=== PATIENT | male | born 1940 | race Caucasian/White ===

== ENCOUNTER 2018-09-15 03:44 | Emergency (ER) | payer MEDICARE, OTHER ==
[~2018-09-15] VITALS: Ht 177.8 cm; Wt 95.2 kg
--- OUTSIDE RECORDS SUMMARY | ~2018-09-15 | XMS | Encounter Summary ---
Demographics + + + | Address | [address] | | | [place] [address] | + + + | Home Phone | | + + + | Preferred Language | Unknown | + + + | Marital Status | | + + + | Anabaptism Affiliation | Unknown | + + + | Race | Unknown | + + + | Ethnic Group | Unknown | + + + Author + + + | Author | [facility] | + + + | Organization | [facility] | + + + | Address | Unknown | + + + | Phone | Unavailable | + + + Support + + +---------+ + | Name | Relationship | Address | Phone | + + +---------+ + | Swetha Hernandez | ECON | Unknown | | + + +---------+ + Care Team Providers + +------+ + | Care Hearing Aid Repair Technician Name | Role | Phone | + +------+ + | Papa Martinez MD | PCP | | + +------+ + Reason for Visit + + + | Reason | Comments | + + + | Knee Pain | | + + + | Ankle Pain | | + + + Surgical (Routine) + + + + + + + | Status | Reason | Specialty | Diagnoses / | Referred By | Referred To | | | | | Procedures | Contact | Contact | + + + + + + + | Authorized | Specialty | Orthopedic | Diagnoses | Nasra, | Milena | | | Services | Surgery | Arthritis | Drew Funez MD | Naresh Potter MD | | | Required | | of ankle | [address] | | | | | [address] | [address] | | | | | | [address] | [place], [place] | | | | | | [id number] | [id number] | | | | | | Phone: | Phone: | | | | | | [phone] | [phone] | | | | | | Fax: | Fax: | | | | | | [phone] | [phone] | + + + + + + + Encounter Details +--------+---------+ + + + | Date | Type | Department | Care Team | Description | +--------+---------+ + + + | 06/19/ | Office | [facility] | Naresh Abbott, | Primary | | 2019 | Visit | [facility] | [address] | osteoarthritis of | | | | [facility] | [address] [place], [place] | both knees (Primary | | | | [address] | [address] | Dx); Lower extremity | | | | [place], [place] | [phone] | pain, diffuse, | | | | [address] | | unspecified | | | | [phone] | | laterality; | | | | | | Arthritis of right | | | | | | foot | +--------+---------+ + + + Social History + +-------+ +--------+ + | Tobacco Use | Types | Packs/Day | Years | Date | | | | | Used | | + +-------+ +--------+ + | Former Smoker | | 1 | 30 | Quit: 1987 | + +-------+ +--------+ + + +---+---+---+ | Smokeless Tobacco: | | | | | Former User | | | | + +---+---+---+ + + +---------+ + | Alcohol Use | Drinks/We | oz/Week | Comments | | | ek | | | + + +---------+ + | Yes | | | 0 to 6 beers per week | + + +---------+ + + + + | Sex Assigned at | Date Recorded | | | | + + + | Not on file | | + + + as of this encounter Instructions Patient Instructions - Isaak Pope PA-C - 06/19/2018 2:30 PM PSTFormatting of this note may be different from the original. Arthritis: Exercise Look for exercise classes for arthritis in your community. Exercise is important to your overall health. It is especially important in people with art hritis. Regular exercise can: Keep yourheart and blood vessels healthy Help with weight management, or weight loss Improve your mood Help prevent and manage health problems such as: Diabetes High blood pressure High cholesterol Depression In people with arthritis, it offers all of those benefits and it can: Lessen pain and stiffness Strengthen muscles that support your joints Help you to be able to do the things you enjoy Exercise and arthritis Exercise is an important part of any arthritis treatment plan. A complete program consists of thefollowing three types of exercises: Aerobic exercisesfor cardiovascular health and overall fitness. Strengthening exercisesto build up muscles to help prevent injury and keep joints stab le. Gqhux-en-espayq exercisesto keep muscles and joints flexible. Getting started Talk with your healthcare provider about what is safe for you. Make sure you: Learn how to do exercises properly and safely.Consider talking with a physical therapi st or instructor trainer canine service used to working with people with arthritis. Start gradually and build. If you haven't been exercising, start slowly. Don't exercise too hard or too long. Create a routine.Set aside specific times for exercise every day. Warm up carefully.Take 5 to 10 minutes at the beginning and end of exercising to warm up and cool down. Just do the same exercises at a slower pace for5 to 10 minutes. Work at a comfortable, smooth pace. Move your joints gently to prevent injury. Pay attention to your body.Don't exercise a painful or swollen joint; switch to anothe r activity. Follow the 2-hour pain rule: You did too much if your joint or muscle pain lasts 2 hours or more after exercising, or is worse the next day. This doesn't mean you should s top exercising. Just do less. Aerobic exercise Aerobic exercise improves overall health and helps control weight.Choose those that don't add extra stress to your joints. For example, walking, swimming, or bicycling. Most people should exercise for at least 30 minutes. most days of the week. You don't have to exercise all at once. Try exercising for 10 minutes, 3 times a day, for example. Strengthening exercises Strengthening your muscles help to protect your joints and prevent injuries. Try to do stre ngthening exercises 2 to 3 times a week: These exercises can be done with exercise or resistance bands (inexpensive exercise aids that add resistance), or with light weights. Some people use soup cans as weights. Isometricexercises are done by tightening the muscles without moving the joint. This m ay be a good way to strengthen the muscles around a stiff joint. A physical therapist or instructor trainer canine service can teach you how to do these exercises. Bsqmi-kw-jssfhv (ROM) exercises Upkhq-id-pwwyck (ROM) exercises allow you to move each of your joints in every way they are intended to move. You should do ROM exercises for each joint 2 to 3 times a day. This will help you maintain full use of all of your joints. Sample ROM exercises The following are just a sample of ROM exercises one for your neck, shoulders, elbows, hi ps, knees, and ankles. To completely move each joint through its full range of motion, you w ill have to do a few exercises for each joint. A physical therapist or instructor trainer canine service can teach you how to do full ROM exercises for each joint. Repeat each for these exercises 5 to 10 times. Make sure you move slowly: 1. Neck turns. Sit in a straight-backed chair. Look straight ahead. Slowly turn your head t o the right, then return it to center. Repeat. Do the same thing, turning your head to the l eft. Repeat. 2. Shoulder raise.Lie on your back or sit in a chair. Raise one arm over your head, keepi ng your elbow straight. Keep the arm close to your ear. Return it slowly to your side. Repea t with your other arm. 3. Elbow stretch.Sit in a chair. If you are able, put both arms out to your sides to form a T. Slowly touch your shoulders with the tips of your fingers. Then return to the T-positi on. Repeat. 4. Hip stretch.Lie on your back with your legs straight and about 6 inches apart. With yo ur foot flexed, slide your leg out to the side, then slide it back to the starting position. Repeat with your other leg. 5. Knee bend. Sit in a chair with your legs bent at the knees in front of you. Straighten o ne leg as much as you can, then bring it back to the floor. Repeat this 5 to 10 times. Then do the same thing with the other leg. 6. Ankle stretch. Sit with your feet flat on the floor. Lift your toes off of the floor whi le your heels stay down. Repeat. Then lift your heels off the floor while your toes stay eran n. Repeat. Other exercise Many other exercise and activities benefit people with arthritis. It is most important to f ind exercise and activities that you enjoy. You might try: Yoga, including chair yoga, helps to keep your joints strong and flexible. Wesley Chi, an ancient type of exercise with slow, gentle movements Water exercise, including water walking For more information on exercise for arthritis go to the Arthritis Foundation website: www. arthritis.org. Date Last Reviewed: 07/19/201519990950-5072 [employer]. [address] [place] [address], [place] [address]. All righ ts reserved. This information is not intended as a substitute for professional medical care. Always follow your healthcare professional's instructions. in this encounter Progress Notes Isaak Pope PA-C - 06/19/2018 2:30 PM PSTFormatting of this note may be different f rom the original. Chief Complaint: Lower extremity pain bilateral knee pain HPI: 77-year-old male in today referred by Dr. Hammonds for evaluation of bilateral lower ext remity pain and lateral knee pain. Patient states his lower extremity pain comes on mainly w hen he is walking, diffuse and not really specific but he describes the pain from his calf d own to his ankles. He was worried that he had arthritis in his ankles. As for his knees he s een Dr. Hammonds for these cortisone injection was done about [address] Hammonds and sent to us for further care REVIEW OF SYSTEMS: Review of Systems Musculoskeletal: Positive for arthralgias, gait problem and joint swelling. All other systems reviewed and are negative. Past Medical History Diagnosis Date Atrial fibrillation (HCC) per patient / one denies Hyperlipidemia Hypertension Swelling 11/01/2017 R hand Uses brace To R hand. Past Surgical History Procedure Laterality Date BRONCHOSCOPY CARDIAC CATHETERIZATION 1999 one stent COLONOSCOPY x2 HERNIA REPAIR x2 TOE SURGERY Left pins placed & removed WRIST SURGERY Right 11/01/2017 Procedure: WRIST - ORIF; Surgeon: Drew Hammonds MD; Location: [facility]; Service : Orthopedics; Laterality: Right; RT WRIST PROXIMAL ROW CARPECTOMY /RT CTR Allergies Allergen Reactions Lipitor [Atorvastatin] Muscle Pain (Not in a hospital admission) Family History Problem Relation Age of Onset Cancer Mother History Smoking Status Former Smoker Packs/day: 1.00 Years: 30.00 Quit date: 1986 Smokeless Tobacco Former User History Alcohol Use Yes Comment: 0 to 6 beers per week History Drug Use No Examination:There were no vitals taken for this visit. HEENT : PERRL, neck supple nontender Lungs: clear, normal respirations Heart: RRR no murmur Abdonmen: soft non-tender Neuro: cranial nerves 2-12 grossly intact Skin: Clear Psych:Oriented to time, place and person Musculoskeletal: Examination of his lower extremity shows his pulses are present but faint. Range of motion is full in his ankles he has got a palpable osteophyte on his first metatarsal cuneiform ronald nt which is mildly tender. Good strength in his lower extremities. Knees show mild degenerat tanvi osteoarthritis palpable osteophytes varus deformity mild range of motion 118 -2 exte nsion. Hips have good range of motion without pain or discomfort skin is clear neurovascular sensory testing is intact reflexes are equal pulses are present to both lower extremity. Diagnostic Data: X-ray Ankle Bilateral 3+views Result Date: 06/20/2018 3 views both ankles show minimal arthritic changes in the ankle joint. On the left a nkle is a little bit of arthritis in the medial tibial talar joint is fairly mild. On the right foot there is noted on the lateral view arthritis in the first metatarsal cuneiform joint wi th dorsal spurring. Xr Knee Bilateral Standing W Laterals And [place] Result Date: 06/20/2018 Standing AP both knees with lateral patellar views both knees show right knee with moderate lateral compartment arthritis. Right knee has moderate patellofemoral arthritis with the le ft knee has minimal patellofemoral arthritis but has more arthritis in the medial and latera l compartments on the standing AP view. There may be a peripheral loose body on the right kn ee Assessment: Encounter Diagnoses Name Primary? Primary osteoarthritis of both knees Yes Lower extremity pain, diffuse, unspecified laterality Arthritis of right foot Plan: As for his knees were going to go ahead and start him on a lubrication injection of M onovisc we would start that next week. To both knees. As for his lower extremity pain I assu red him by x-ray he has no arthritis in his ankles I am wondering whether he has more vascul ar problem and possibly neuropathy in his lower extremities and that is why he gets his pain . I will make a referral to see vascular surgeon for further workup. Primary Care Physician: PAPA Chew this encounter Plan of Treatment Not on fileas of this encounter Results x-ray ankle bilateral 3+views (06/19/2018 2:42 PM) + + + | Narrative | Performed At | + + + | 3 views both | [facility] | | ankles show minimal arthritic changes in the ankle joint. On the left | RADIOLOGY | | a nkle is a little bit of arthritis in the medial tibial talar | | | joint is fairly mild. On the right foot there is noted on the lateral | | | view arthritis in the first metatarsal cuneiform joint with dorsal | | | spurring. | | + + + + + + + + | Performing | Address | City/State/Zipcode | Phone Number | | Organization | | | | + + + + + | [facility] | [address] | [place] [address] | | + + + + + XR knee bilateral standing w laterals and sunrise (06/19/2018 2:42 PM) + + + | Narrative | Performed At | + + + | Standing AP | [facility] | | both knees with lateral patellar views both knees show right knee with | RADIOLOGY | | moderate lateral compartment arthritis. Right knee has moderate | | | patellofemoral arthritis with the left knee has minimal patellofemoral | | | arthritis but has more arthritis in the medial and lateral | | | compartments on the standing AP view. There may be a peripheral loose | | | body on the right knee | | + + + + + + + + | Performing | Address | City/State/Zipcode | Phone Number | | Organization | | | | + + + + + | [facility] | [address] | [place] [address] | | + + + + + in this encounter Visit Diagnoses + + | Diagnosis | + + | Primary osteoarthritis of both knees - Primary | + + | Primary localized osteoarthrosis, lower leg | + + | Lower extremity pain, diffuse, unspecified laterality | + + | Arthritis of right foot | + + | Unspecified arthropathy, ankle and foot | + +"
--- OUTSIDE RECORDS SUMMARY | ~2018-09-15 | XMS | Encounter Summary ---
Demographics + + + | Address | [address] | | | [place] [address] | + + + | Home Phone | | + + + | Preferred Language | Unknown | + + + | Marital Status | | + + + | Anabaptist Affiliation | Unknown | + + + | Race | Unknown | + + + | Ethnic Group | Unknown | + + + Author + + + | Author | [facility] [employer] [facility] | + + + | Organization | [facility] | + + + | Address | Unknown | + + + | Phone | Unavailable | + + + Support + + +---------+ + | Name | Relationship | Address | Phone | + + +---------+ + | Swetha Hernadnez | ECON | Unknown | | + + +---------+ + Care Team Providers + +------+ + | Care Travel Consultant Name | Role | Phone | + +------+ + | Ramon Martinez MD | PCP | | + +------+ + Reason for Visit Surgical (Routine) + +--------+ + + + + | Status | Reason | Specialty | Diagnoses / | Referred By | Referred To | | | | | Procedures | Contact | Contact | + +--------+ + + + + | Authorized | | Orthopedic | Diagnoses | Nasra, | Nasra, | | | | Surgery | BILAT KNEE | Drew Funez MD | Drew Funez MD | | | | | PAIN | [address] | | | | | Procedures | [address] | [address], | | | | | ORTHO FOLLOW | [place], [place] | [place] [address] | | | | | [place] | [address] | Phone: | | | | | | Phone: | [phone] | | | | | | [phone] | Fax: | | | | | | Fax: | [phone] | | | | | | [phone] | | + +--------+ + + + + Encounter Details +--------+---------+ + + + | Date | Type | Department | Care Team | Description | +--------+---------+ + + + | 07/05/ | Office | [facility] | Naresh Abbott, | Primary | | 2019 | Visit | [facility] | [address] | osteoarthritis of | | | | [facility] [place] | [address] [place], [place] | both knees (Primary | | | | [address] | [address] | Dx) | | | | [place], [place] | [phone] | | | | | [address] | | | | | | [phone] | | | +--------+---------+ + + + Social History [...] this encounter Instructions Patient Instructions - Isaak Cartwright PA-C - 07/05/2018 7:30 AM PST Hylan G-F 20 intra-articular injection Brand Names: Synvisc, Synvisc-One What is this medicine? HYLAN G-F 20 (HI esther G F 20) is used to treat osteoarthritis of the knee. It lubricates and cushions the joint, reducing pain in the knee. How should I use this medicine? This medicine is for injection into the knee joint. It is given by a health care profession al in a hospital or clinic setting. Talk to your customer pricing manager regarding the use of this medicine in children. This medicine is not approved for use in children. What side effects may I notice from receiving this medicine? Side effects that you should report to your doctor or health neonatal critical care nurse as soon as p ossible: allergic reactions like skin rash, itching or hives, swelling of the face, lips, or tong ue difficulty breathing fever or chills severe joint pain or swelling unusual bleeding or bruising Side effects that usually do not require medical attention (report to your doctor or health neonatal critical care nurse if they continue or are bothersome): dizziness flushing general ill feeling or flu-like symptoms headache minor joint pain or swelling muscle pain or cramps pain, redness, irritation or bruising at site of injection What may interact with this medicine? Do not take this medicine with any of the following medications: other injections for the joint like steroids or anesthetics certain skin disinfectants like benzalkonium chloride What if I miss a dose? Keep appointments for follow-up doses as directed. For Synvisc, you will need weekly inject ions for 3 doses. It is important not to miss your dose. If you will receive Synvisc-One only 1 injection will be needed. Call your doctor or health neonatal critical care nurse if you are unable to keep an appointment. Where should I keep my medicine? This drug is given in a hospital or clinic and will not be stored at home. What should I tell my health care provider before I take this medicine? They need to know if you have any of these conditions: severe knee inflammation skin conditions or sensitivity skin or joint infection venous stasis an unusual or allergic reaction to hylan G-F 20, hyaluronan (sodium hyaluronate), eggs, other medicines, foods, dyes, or preservatives or trying to get breast-feeding What should I watch for while using this medicine? Tell your doctor or healthcare professional if your symptoms do not start to get better or if they get worse. Your condition will be monitored carefully while you are receiving this m edicine. Most persons get pain relief for up to 6 months after treatment. Avoid strenuous activities (high-impact sports, jogging) or major weight-bearing activities for 48 hours after the injection. NOTE:This sheet is a summary. It may not cover all possible information. If you have questi ons about this medicine, talk to your doctor, pharmacist, or health care provider. Copyright 2018 [employer] in this encounter Progress Notes Isaak Cartwright PA-C - 07/05/2018 7:30 AM PSTAssociated Order(s): ARTHROCENTESIS/INJECT IONPost-Procedure Diagnose(s): Primary osteoarthritis of both knees07/05/18 Cesar Hernandez 1940 Subjective: This is a 78 y.o. male, here today for recheck of their bilateral knee arthritis. We are cu rrently treating their arthritis in a conservative mode, HEP, pain medication and or NSAIDs. We have talked about injection therapy and have decided to proceed with that. I have reviewed the past medical hx, allergies, and medications listed in their chart. Objective Examination of their bilateral knee shows moderate osteoarthritis, palpable osetophytes, no joint effusion or warmth, hip ROM in normal, Skin is clear. Knee flexion is at 120 degrees , extension is at -3. Diagnotic Data: Xrays show moderate OA. Assessment Osteoarthritis bilateral knee. Plan I've reviewed exercises and precautions. Medications refilled as needed. Patient will fol low up in prn. Procedure: Arthrocentesis/Injection Date/Time: 07/05/2018 7:35 AM Performed by: ISAAK CARTWRIGHT Authorized by: ISAAK CARTWRIGHT Verbal consent was obtained. Written consent was not obtained. Consent was given by patient . Risks, benefits and alternatives were discussed. Patient states understanding of procedur e being performed. Indications Type: Therapeutic injection Knee: both knees. Anesthesia: surface application Ethyl Chloride. Procedure Details Preparation: Chloraprep, skin prepped with alcohol and sterile technique Needle size: 20 G Difficulty: Easy Complications: No Patient tolerated the procedure well with no immediate complications. Post-procedure instructions given to patient. Therapeutic injection was given. Meds administered: monovisc. 44(mg). Procedure Comments: Superior lateral approach taken to both knees after sterile prep was ma de both knees were injected with monovisc, patient tolerated this well. We also confirmed a referral to vascular studies for both lower extremity for bilateral lower extremity pain. in this encounter Plan of Treatment Not on fileas of this encounter Procedures + +--------+ + + + | Procedure Name | Priori | Date/Time | Associated Diagnosis | Comments | | | ty | | | | + +--------+ + + + | ARTHROCENTESIS/INJEC | Routin | 07/05/2018 | Primary | Results for this | | TION | e | 7:30 AM | osteoarthritis of | procedure are in the | | | | PST | both knees | results section. | + +--------+ + + + in this encounter Results Arthrocentesis/Injection (07/05/2018 7:30 AM) + + + | Narrative | Performed At | + + + | Isaak Cartwright PA-C 07/05/2018 7:47 AM | | | Arthrocentesis/Injection Date/Time: 07/05/2018 7:35 AM Performed by: | | | ISAAK CARTWRIGHT Authorized by: ISAAK CARTWRIGHT Verbal | | | consent was obtained. Written consent was not obtained. Consent was | | | given by patient. Risks, benefits and alternatives were discussed. | | | Patient states understanding of procedure being performed. | | | Indications Type: Therapeutic injection Knee: both knees. | | | Anesthesia: surface application Ethyl Chloride. Procedure | | | Details Preparation: Chloraprep, skin prepped with alcohol and | | | sterile technique Needle size: 20 G Difficulty: Easy | | | Complications: No Patient tolerated the procedure well with no | | | immediate complications. Post-procedure instructions given to patient. | | | Therapeutic injection was given. Meds administered: monovisc. | | | 44(mg). Procedure Comments: Superior lateral approach taken to | | | both knees after sterile prep was made both knees were injected with | | | monovisc, patient tolerated this well. We also confirmed a referral | | | to vascular studies for both lower extremity for bilateral lower | | | extremity pain. | | + + + in this encounter Visit Diagnoses + + | Diagnosis | + + | Primary osteoarthritis of both knees - Primary | + + | Primary localized osteoarthrosis, lower leg | + +"
--- OUTSIDE RECORDS SUMMARY | ~2018-09-15 | XMS | Encounter Summary ---
Demographics + + + | Address | [address] | | | [place] [address] | + + + | Home Phone | | + + + | Preferred Language | Unknown | + + + | Marital Status | | + + + | Jain Affiliation | Unknown | + + + | Race | Unknown | + + + | Ethnic Group | Unknown | + + + Author + + + | Author | [facility] | + + + | Organization | [facility] | + + + | Address | Unknown | + + + | Phone | Unavailable | + + + Support + + +---------+ + | Name | Relationship | Address | Phone | + + +---------+ + | Swetha Hernandez | ECON | Unknown | | + + +---------+ + Care Team Providers + +------+ + | Care Line Builder Name | Role | Phone | + +------+ + | Ramon Martinez MD | PCP | | + +------+ + Reason for Referral Surgical (Routine) + + + + + + + | Status | Reason | Specialty | Diagnoses / | Referred By | Referred To | | | | | Procedures | Contact | Contact | + + + + + + + | Authorized | Specialty | Vascular | Diagnoses | [place], | | | | Services | Surgery | Lower | Isaak Severino, | Dona | | | Required | | extremity | [address] | , MD Mauro | | | | | pain, | [address] | [address] | | | | | diffuse, | [address] | | | | | unspecified | [place], [place] | [place], | | | | | laterality | [address] | [place] [address] | | | | | | Phone: | Phone: | | | | | | [phone] | [phone] | | | | | | Fax: | Fax: | | | | | | [phone] | [phone] | + + + + + + + Encounter Details +--------+ + + + + | Date | Type | Department | Care Team | Description | +--------+ + + + + | 06/20/ | Orders Only | [facility] | Anjelica Hodgson S, | Lower extremity | | 2018 | | ORTHO SPORTS | PRINT SHOP ASSISTANT | pain, diffuse, | | | | MEDICINE [place] | | unspecified | | | | [address] [facility] | | laterality (Primary | | | | [place] | | Dx) | | | | [address] | | | | | | [phone] | | | +--------+ + + + + Social History + +-------+ [...] + + + as of this encounter Plan of Treatment + +--------+ + + | Name | Priori | Associated Diagnoses | Order Schedule | | | ty | | | + +--------+ + + | Ambulatory referral to Vascular | Routin | Lower extremity | Ordered: 06/20/2018 | | Surgery | e | pain, diffuse, | | | | | unspecified | | | | | laterality | | + +--------+ + + as of this encounter Visit Diagnoses + + | Diagnosis | + + | Lower extremity pain, diffuse, unspecified laterality - Primary | + +"
--- OUTSIDE RECORDS SUMMARY | ~2018-09-15 | XMS | Encounter Summary ---
Demographics + + + | Address | [address] | | | [place] [address] | + + + | Home Phone | | + + + | Preferred Language | Unknown | + + + | Marital Status | | + + + | Congregation Affiliation | Unknown | + + + | Race | Unknown | + + + | Ethnic Group | Unknown | + + + Author + + + | Author | [facility] | + + + | Organization | [facility] | + + + | Address | Unknown | + + + | Phone | Unavailable | + + + Support + + +---------+ + | Name | Relationship | Address | Phone | + + +---------+ + | Swetha Hernandez | ECON | Unknown | | + + +---------+ + Care Team Providers + +------+ + | Care Speed Operator Name | Role | Phone | + [...] | Procedures | [address] | [address] [place], | | | | | ORTHO FOLLOW | [place], [place] | [place] [address] | | | | | UP | [address] | Phone: | | | | | | Phone: | [phone] | | | | | | [phone] | Fax: | | | | | | Fax: | [phone] | | | | | | [phone] | | + +--------+ + + + + Encounter Details +--------+---------+ + + + | Date | Type | Department | Care Team | Description | +--------+---------+ + + + | 07/05/ | Office | [facility] | Naresh Abbott, | Primary | | 2019 | Visit | ORTHO SPORTS | [address] | osteoarthritis of | | | | MEDICINE [place] | [address] [place], [place] | both knees (Primary | | | | [address] | [address] | Dx) | | | | [place], [place] | [phone] | | | | | [address] | | | | | | [phone] | | | +--------+---------+ + + + [...] hospital or clinic setting. Talk to your gynecological assistant regarding the use of this medicine in children. This medicine is not approved for use in children. What side effects may I notice from receiving this medicine? Side effects that you should report to your doctor or health cna caregiver as soon as p ossible: allergic reactions like skin rash, itching or hives, swelling of the face, lips, or tong ue difficulty breathing fever or chills severe joint pain or swelling unusual bleeding or bruising Side effects that usually do not require medical attention (report to your doctor or health cna caregiver if they continue or are bothersome): dizziness [...] be needed. Call your doctor or health cna caregiver if you are unable to keep an [...]
--- OUTSIDE RECORDS SUMMARY | ~2018-09-15 | XMS | Encounter Summary ---
Demographics + + + | Address | [address] | | | [place] [address] | + + + | Home Phone | | + + + | Preferred Language | Unknown | + + + | Marital Status | | + + + | Adventism Affiliation | Unknown | + + + | Race | Unknown | + + + | Ethnic Group | Unknown | + + + Author + + + | Author | [facility] | + + + | Organization | [facility] | + + + | Address | Unknown | + + + | Phone | Unavailable | + + + Support + + +---------+ + | Name | Relationship | Address | Phone | + + +---------+ + | Swetha Hernandez | ECON | Unknown | | + + +---------+ + Care Team Providers + +------+ + | Care Compressed Gas Equipment Mechanic Name | Role | Phone | + [...] | | | | [place] [address] | [place], [place] | | | | | | [address] | [phone] | | | | | | Phone: | Phone: | | | | | | [phone] | [phone] | | | | | | Fax: | Fax: | | | | | | [phone] | [phone] | + + + + + + + Encounter Details +--------+---------+ + + + | Date | Type | Department | Care Team | Description | +--------+---------+ + + + | 06/19/ | Office | [facility] | Naresh Abbott, | Primary | | 2019 | Visit | ORTHO SPORTS | [address] | osteoarthritis of | | | | MEDICINE [place] | [address] [place], [place] | both knees (Primary | | | | [address] | [address] | Dx); Lower extremity | | | | [place], [place] | [phone] | pain, diffuse, | | | | [address] | | unspecified | | | | [phone] | | laterality; | | | | [...] prevent injury and keep joints stab le. Xdsyl-nm-ygemlc exercisesto keep muscles and joints flexible. Getting started Talk with your healthcare provider about what is safe for you. Make sure you: Learn how to do exercises properly and safely.Consider talking with a physical therapi st or strainer tender used to working with people with arthritis. [...] a stiff joint. A physical therapist or strainer tender can teach you how to do these exercises. Cyhsi-lk-rivzqy (ROM) exercises Qghyn-gm-yabjke (ROM) exercises allow you to move each [...] for each joint. A physical therapist or strainer tender can teach you how to do full [...] Foundation website: www. arthritis.org. Date Last Reviewed: 07/19/201519991622-5359 [employer]. [address] [place] [address], [place] [address]. All righ ts reserved. This information is [...] - ORIF; Surgeon: Drew Hammonds MD; Location: [facility]; Service : Orthopedics; Laterality: Right; RT WRIST [...] Xr Knee Bilateral Standing W Laterals And [place] Result Date: 06/20/2018 Standing AP both knees [...] | + + + + + | [facility] | [address] | [place] [address] | | + + + + + [...] | + + + + + | [facility] | [address] | [place] [address] | | + + + + + [...]
--- OUTSIDE RECORDS SUMMARY | ~2018-09-15 | XMS | Clinical Summary ---
Demographics + + + | Address | [address] | | | [place] [address] | + + + | Home Phone | | + + + | Preferred Language | Unknown | + + + | Marital Status | | + + + | Yazidism Affiliation | Unknown | + + + | Race | Unknown | + + + | Ethnic Group | Unknown | + + + Author + + + | Author | [facility] | + + + | Organization | [facility] | + + + | Address | Unknown | + + + | Phone | Unavailable | + + + Support + + +---------+ + | Name | Relationship | Address | Phone | + + +---------+ + | Swetha Gibson | ECON | Unknown | | + + +---------+ + Care Team Providers + +------+ + | Care Lineworker Name | Role | Phone | + +------+ + | Ramon Martinez MD | PP | | + +------+ + Allergies + + + + + + | Active Allergy | Reactions | Severity | Noted | Comments | | | | | Date | | + + + + + + | Atorvastatin | Muscle Pain | | 07/12/19 | | | | | | 18 | | + + + + + + Current Medications + + +--------+---------+------+------+-------+ | Prescription | Sig. | Disp. | Refills | Star | End | Statu | | | | | | t | Date | s | | | | | | Date | | | + + +--------+---------+------+------+-------+ | lisinopril | Take 5 mg by mouth | | | | | Activ | | (ZESTRIL) 10 MG | daily. | | | | | e | | tablet | | | | | | | + + +--------+---------+------+------+-------+ | simvastatin | Take 40 mg by mouth | | | | | Activ | | (ZOCOR) 40 MG tablet | nightly. | | | | | e | + + +--------+---------+------+------+-------+ | atenolol | Take 25 mg by mouth | | | | | Activ | | (TENORMIN) 50 MG | daily. | | | | | e | | tablet | | | | | | | + + +--------+---------+------+------+-------+ | ibuprofen (ADVIL) | Take 200 mg by mouth | | | | | Activ | | 200 MG tablet | 2 (two) times | | | | | e | | | daily. | | | | | | + + +--------+---------+------+------+-------+ | | Take 1 tablet by | 30 | 0 | 05/3 | | Activ | | oxyCODONE-acetaminop | mouth every 4 (four) | tablet | | 0/20 | | e | | hen (PERCOCET) 5-325 | hours as needed for | | | 18 | | | | MG per tablet | Pain. 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 | | + + + | Benign hypertension | 07/12/2017 | + + + | Atrial arrhythmia | 07/12/2017 | + + + Resolved Problems + + + + | Problem | Noted | Resolved | | | Date | Date | + + + + | Paroxysmal atrial fibrillation (HCC) | 07/12/19 | | | | 18 | 8 | + + + + Encounters +--------+ + + + + | Date | Type | Specialty | Care Team | Description | +--------+ + + + + | 07/05/ | Office | | Naresh Abbott, | Primary | | 2018 | Visit | | MD | osteoarthritis of | | | | | | both knees (Primary | | | | | | Dx) | +--------+ + + + + | 06/20/ | Orders Only | | Anjelica Hodgson, | Lower extremity | | 2019 | | | PRINCIPAL CYBER ENGINEER | pain, diffuse, | | | | | | unspecified | | | | | | laterality (Primary | | | | | | Dx) | +--------+ + + + + | 06/19/ | Office | | Naresh Abbott, | Primary | | 2019 | Visit | | MD | osteoarthritis of | | | | | | both knees (Primary | | | | | | Dx); Lower extremity | | | | | | pain, diffuse, | | | | | | unspecified | | | | | | laterality; | | | | | | Arthritis of right | | | | | | foot | +--------+ + + + + from Last 3 Months Family History + + +------+ + | Medical History | Relation | Name | Comments | + + +------+ + | Cancer | Mother | | | + + +------+ + + +------+ + + | Relation | Name | Status | Comments | + +------+ + + | Father | | | ASHD | | | | (Age | | | | | 47) | | + +------+ + + | Mother | | | LUNG CANCER | | | | (Age | | | | | 70) | | + +------+ + + Social History + +-------+ +--------+ [...] on file | | + + + Last Filed Vital Signs + + + + | Vital Sign | Reading | Time Taken | + + + + | Blood Pressure | 110/68 | 05/10/2018 1:45 PM PST | + + + + | Pulse | 56 | 05/10/2018 1:45 PM PST | + + + + | Temperature | 36.5 C (97.7 F) | 11/01/2017 4:01 PM PDT | + + + + | Respiratory Rate | 14 | 02/08/2018 11:05 AM PDT | + + + + | Oxygen Saturation | 98% | 05/10/2018 1:45 PM PST | + + + + | Inhaled Oxygen | - | - | | Concentration | | | + + + + | Weight | 92.5 kg (204 lb) | 05/10/2018 1:45 PM PST | + + + + | Height | 177.8 cm (5' 10") | 05/10/2018 1:45 PM PST | + + + + | Body Mass Index | 29.27 | 05/10/2018 1:45 PM PST | + + + + Plan of Treatment + + + + + | Health Maintenance | Due Date | Last Done | Comments | + + + + + | Vaccine: | | | | | Dtap/Tdap/Td (1 - | 0 | | | | Tdap) | | | | + + + + + | Vaccine: Zoster (1 | | | | | of 2) | 1 | | | + + + + + | Vaccine: | | | | | Pneumococcal 65+ | 6 | | | | Low/Medium Risk (1 | | | | | of 2 - PCV13) | | | | + + + + + | Vaccine: Influenza | | | | | (Season Ended) | 9 | | | + + + + + Procedures + +--------+ + + + | [...] section. | + +--------+ + + + | XR ANKLE BILATERAL | Routin | 06/19/2018 | Primary | Results for this | | | e | 2:42 PM | osteoarthritis of | procedure are in the | | | | PST | both knees | results section. | + +--------+ + + + | XR KNEE BILATERAL | Routin | 06/19/2018 | Primary | Results for this | | STANDING W LATERALS | e | 2:42 PM | osteoarthritis of | procedure are in the | | AND [place] | | PST | both knees | results section. | + +--------+ + + + from Last 3 Months Results Arthrocentesis/Injection (07/05/2018 7:30 AM) + + [...] extremity pain. | | + + + x-ray ankle bilateral 3+views (06/19/2018 2:42 PM) [...] | + + + + + | [facility] | [address] | [place] [address] | | + + + + + [...] | + + + + + | [facility] | [address] | [place] [address] | | + + + + + from Last 3 Months Insurance + +--------+ +------+-------+ + | Payer | Benefi | Subscriber | Type | Phone | Address | | | t Plan | ID | | | | | | / | | | | | | | Group | | | | | + +--------+ +------+-------+ + | MEDICARE | MEDICA | [id number] | | | [address] | | | RE | | | | [place] [address] | | | IP-OP | | | | | + +--------+ +------+-------+ + | [employer] [place] | MUTUAL | [id number] | | | | | | [place] | | | | | | | [place] | | | | | + +--------+ +------+-------+ + + +--------+ +--------+ + + | Guarantor Name | Accoun | Relation to | Date | Phone | Billing Address | | | t Type | Patient | of | | | | | | | | | | + +--------+ +--------+ + + | NEFTALY GIBSON | Person | Self | [birth year] | Home: | [address] | | | al/Fam | | 1941 | [phone] | [place] | | | panfilo | | | [phone] | [address] | + +--------+ +--------+ + +
--- OUTSIDE RECORDS SUMMARY | ~2018-09-15 | XMS | Clinical Summary ---
Demographics + + + | Address | [address] | | | [place] [address] | + + + | Home Phone | | + + + | Preferred Language | Unknown | + + + | Marital Status | | + + + | Taoist Affiliation | BAP | + + + | Race | White | + + + | Ethnic Group | Not or | + + + Author + + + | Author | [facility] | + + + | Organization | [facility] | + + + | Address | Unknown | + + + | Phone | Unavailable | + + + Support + + + + + | Name | Relationship | Address | Phone | + + + + + | SALOMÓN GIBSON | ECON | [address] | | | | | [place] | | | | | [address] | | + + + + + | DARLIN DEL RIO | ECON | Unknown | | + + + + + | BART GIBSON | ECON | Unknown | | + + + + + Care Team Providers + +------+ + | Care Pot Puller Name | Role | Phone | + +------+ + | Ramon Martinez MD | PP | | + +------+ + Source Comments [facility] and [facility] In[facility] Allergies No Known Allergies Current Medications + + +--------+---------+------+------+-------+ | Prescription | Sig. | Disp. | Refills | Star | End | Statu | | | | | | t | Date | s | | | | | | Date | | | + + +--------+---------+------+------+-------+ | oxyCODONE | Take 1 tablet by | 25 | 0 | 05 | | Activ | | (immediate release) | mouth every four | tablet | | 5/20 | | e | | 5 mg oral tablet | hours as needed for | | | 18 | | | | | breakthrough pain. | | | | | | + + +--------+---------+------+------+-------+ Active Problems + + + | Problem | Noted Date | + + + | Closed fracture dislocation of lunate of right wrist | 10/27/2017 | + + + Social History + +-------+ +--------+ + | Tobacco Use | Types | Packs/Day | Years | Date | | | | | Used | | + +-------+ +--------+ + | Former Smoker | | | | Quit: 1986 | + +-------+ +--------+ + + +---+---+---+ | Smokeless Tobacco: | | | | | Never Used | | | | + +---+---+---+ + + | Tobacco Cessation: Counseling Given: No | + + + + +---------+ + | Alcohol Use | Drinks/We | oz/Week | Comments | | | ek | | | + + +---------+ + | No | | | | + + +---------+ + + + + | Sex Assigned at | Date Recorded | | | | + + + | Not on file | | + + + Last Filed Vital Signs + + + + | Vital Sign | Reading | Time Taken | + + + + | Blood Pressure | 157/84 | 10/27/2017 8:21 AM PDT | + + + + | Pulse | 48 | 10/27/2017 5:00 AM PDT | + + + + | Temperature | 36.7 C (98.1 F) | 10/26/2017 10:38 PM PDT | + + + + | Respiratory Rate | 14 | 10/26/2017 10:38 PM PDT | + + + + | Oxygen Saturation | 100% | 10/27/2017 8:21 AM PDT | + + + + | Inhaled Oxygen | - | - | | Concentration | | | + + + + | Weight | 94.5 kg (208 lb 6.4 | 10/26/2017 10:38 PM PDT | | | oz) | | + + + + | Height | - | - | + + + + | Body Mass Index | - | - | + + + + Plan of Treatment + + + + + | Health Maintenance | Due Date | Last Done | Comments | + + + + + | Pneumococcal (Adult) | | | | | (1 of 2 - PCV13) | 6 | | | + + + + + | Influenza (Flu) | | | | | vaccination (#1) | 8 | | | + + + + + Results Not on filefrom Last 3 Months Insurance + +--------+ +--------+ + + | Payer | Benefi | Subscriber | Type | Phone | Address | | | t Plan | ID | | | | | | / | | | | | | | Group | | | | | + +--------+ +--------+ + + | MEDICARE | MEDICA | xxxxxxxxxx | Medica | +- | [address] | | | RE A & | | re | [phone] | [place] [address] | | | B | | | | | + +--------+ +--------+ + + | [employer] [place] | MUTUAL | [id number] | Indemn | [phone] | [employer] [place] | | MEDICARE SUPPL | OF | | ity | [address] | | | [place] | | | | [id number] | | | MEDICA | | | | | | | RE | | | | | | | SUPPL | | | | | + +--------+ +--------+ + + + +--------+ +--------+ + + | Guarantor Name | Accoun | Relation to | Date | Phone | Billing Address | | | t Type | Patient | of | | | | | | | | | | + +--------+ +--------+ + + | NEFTALY GIBSON | Person | Self | [birth year] | Home: | [address] | | | al/Manuel | | 1941 | [phone] | [place] [address] | | | [place]filo | | | [phone] | | + +--------+ +--------+ + +"
--- OUTSIDE RECORDS SUMMARY | ~2018-09-15 | XMS | Encounter Summary ---
Demographics + + + | Address | [address] | | | [place] [address] | + + + | Home Phone | | + + + | Preferred Language | Unknown | + + + | Marital Status | | + + + | Synagogue Affiliation | Unknown | + + + | Race | Unknown | + + + | Ethnic Group | Unknown | + + + Author + + + | Author | [facility] | + + + | Organization | [facility] | + + + | Address | Unknown | + + + | Phone | Unavailable | + + + Support + + +---------+ + | Name | Relationship | Address | Phone | + + +---------+ + | Swetha Hernandez | ECON | Unknown | | + + +---------+ + Care Team Providers + +------+ + | Care Staff Climate Scientist Name | Role | Phone | + [...] | | | | | unspecified | [place], [place] | [place], | | | | | laterality | [address] | [place] [address] | | | | | | Phone: | Phone: | | | | | | [phone] | [phone] | | | | | | Fax: | Fax: | | | | | | [phone] | [phone] | + + + + + + + Encounter Details +--------+ + + + + | Date | Type | Department | Care Team | Description | +--------+ + + + + | 06/20/ | Orders Only | [facility] | Anjelica Hodgson S, | Lower extremity | | 2018 | | ORTHO SPORTS | RETAIL WIRELESS SALES CONSULTANT | pain, diffuse, | | | | MEDICINE [place] | | unspecified | | | | [address] [facility] | | laterality (Primary | | | | [place] | | Dx) | | | | [address] | | | | | | [phone] | | | +--------+ + + + [...]
--- OUTSIDE RECORDS SUMMARY | ~2018-09-15 | XMS | Clinical Summary ---
Demographics + + + | Address | [address] | | | [place] [address] | + + + | Home Phone | | + + + | Preferred Language | Unknown | + + + | Marital Status | | + + + | Caodaism Affiliation | BAP | + + + [...] + | SALOMÓN GIBSON | ECON | [address] | | | | | [place] | | | | | [address] | | + + + + + | DARLIN DEL RIO | ECON | Unknown | | + + + + + | BART GIBSON | ECON | Unknown | | + + + + + Care Team Providers + +------+ + | Care Fisher Sponge Hooking Name | Role | Phone | + +------+ + | Ramon Martinez MD | PP | | + +------+ + Source Comments [facility] is fully [facility] and [facility] InPatient.[facility] Allergies No Known Allergies Current Medications + [...] | re | [address] | [place] [address] | | | B | | | | | + +--------+ +--------+ + + | [employer] [place] | MUTUAL | [id number] | Indemn | [phone] | [employer] [place] | | MEDICARE SUPPL | OF | | ity | [address] | [address] | | | [place] | | | | [phone] | | | MEDICA | | | [...] | Self | [birth year] | Home: | [address] | | | al/[place]uel | | 1941 | [phone] | [place] [address] | | | panfilo | | | [address] | | + +--------+ +--------+ + +"
--- OUTSIDE RECORDS SUMMARY | ~2018-09-15 | XMS | Clinical Summary ---
Demographics + + + | Address | [address] | | | [place] [address] | + + + | Home Phone | | + + + | Preferred Language | Unknown | + + + | Marital Status | | + + + | Methodist Affiliation | Unknown | + + + | Race | Unknown | + + + | Ethnic Group | Unknown | + + + Author + + + | Author | [facility] | + + + | Organization | [facility] | + + + | Address | Unknown | + + + | Phone | Unavailable | + + + Support + + +---------+ + | Name | Relationship | Address | Phone | + + +---------+ + | Swetha Gibson | ECON | Unknown | | + + +---------+ + Care Team Providers + +------+ + | Care Grievance Manager Name | Role | Phone | + [...] Overview: Added automatically from request for surgery [id number] | + + + + + | 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 | | + [...] extremity | | 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 | pain, diffuse, | | | | [...] | + + + + + | [facility] | [address] | [place] [address] | | + + + + + [...] | [address] | [place] [address] | | + + + + + [...] +------+-------+ + | MEDICARE | MEDICA | [id number] | | | [address] | | | RE | | | | [place] [address] | | | IP-OP | | | | | + +--------+ +------+-------+ + | [employer] [place] | MUTUAL | [id number] | | | | | | OF | | | | | | | [place] | | | | | + +--------+ [...] | Self | [birth year] | Home: | [address] | | | al/Fam | | 1941 | [phone] | [place] | | | [place] | | | [address] | [address] | + +--------+ +--------+ + +
[~2018-09-15 03:44] MED LIST: ASPIRIN EC81 MG PO; ATENOLOL25 MG PO; LISINOPRIL5 MG PO; SIMVASTATIN20 MG PO
[2018-09-15] MEDS ORDERED: DOXYCYCLINE HY100 MG PO (05:20)
--- NOTE | 2018-09-15 08:02 | EKG ---
[facility] [address] [facility] [place] [address] Signed Sinus rhythm with premature atrial complexes in a pattern of bigeminy Low voltage QRS Nonspecific ST abnormality Abnormal ECG No previous ECGs available Confirmed by MICHAEL LI MD ([id number]) on 09/15/2018 8:02:40 AM Electronically Signed By: MICHAEL LI MD 09/15/18 0802 PATIENT NAME: NEFTALY GIBSON Electrocardiogram DATE OF : 40 PHYSICIAN: MICHAEL LI MD REPORT #: [id number] REPORT IS CONFIDENTIAL AND NOT TO BE RELEASED WITHOUT AUTHORIZATION
== END 2018-09-15 05:32 | disposition home or self-care (01) ==
LOC: ED 03:44
DX: J20.9 Acute bronchitis, unspecified (principal); Z87.891 Personal history of nicotine dependence; Z79.899 Other long term (current) drug therapy; Z79.82 Long term (current) use of aspirin; I10 Essential (primary) hypertension
CPT/HCPCS: 71045; 80053; 83735; 83880; 84484; 85025; 93005; 93010; 99285-25